=== PATIENT | female | born 1935 | race Caucasian/White ===

== ENCOUNTER 2022-03-14 14:47 | Observation (INO) ==
[2022-03-14 15:45] LABS: ABS Lymphocytes 0.6 10^3/ul (1.0-4.8); ABS Monocytes 0.5 10^3/ul (0-0.8); ABS Neutrophils 9.4 10^3/ul (1.5-7.7); Eosinophil % 0.3 %; Hematocrit 29 % (35-47); Hemoglobin 9.1 g/dL (12.0-16.0); Lymphocyte % 5.8 %; Mean Corpuscular HGB Conc 32 g/dL (31-36); Mean Corpuscular Hemoglobin 28 pg (27-31); Mean Corpuscular Volume 89 fL (80-97); Mean Platelet Volume 8.5 fL (7.4-10.4); Platelet Count 293 10^3/uL (150-450); Red Blood Count 3.25 10^6 /uL (3.70-4.87); Red Cell Distribution Width 16 % (10-15); White Blood Count 10.6 10^3/uL (3.5-10.8)
[2022-03-14 16:05] LABS: Albumin 3.2 g/dL (3.2-5.2); Albumin/Globulin Ratio 0.9 (1-3); C Reactive Protein 79.52 mg/L (<8.01); Globulin 3.4 g/dL (2-4); Potassium 4.4 mmol/L (3.5-5.0); Total Bilirubin 0.5 mg/dL (0.2-1.0); Total Protein 6.6 g/dL (6.4-8.9); eGFR CKD-EPI 12.9 (>60)
[2022-03-14 17:26] LABS: High Sensitivity Troponin 1 Hr 19 pg/mL (<15)
[2022-03-14] MEDS ORDERED: Furosemide 40 mg/4 ml IV VIAL IV ONE (19:31)
[2022-03-14 23:07] LABS: Urine Appearance Clear; Urine Bilirubin Negative (Negative); Urine Color Yellow; Urine Glucose Negative (Negative); Urine Ketones Negative (Negative); Urine Nitrite Negative (Negative); Urine Protein 2+ (100 mg/dL) (Negative); Urine Urobilinogen 0.2 (Negative) (Negative); Urine pH 6.5 (5.0-9.0)
[2022-03-14 23:16] LABS: Urine Bacteria Absent (Absent); Urine Red Blood Cell Trace(0-2/hpf) (Absent); Urine Squamous Epithelial Cell Present (Absent); Urine White Blood Cell Trace(0-5/hpf) (Absent)
[2022-03-15 05:53] LABS: ABS Basophils 0.1 10^3/ul (0-0.2); ABS Eosinophils 0.1 10^3/ul (0-0.6); ABS Monocytes 0.7 10^3/ul (0-0.8); ABS Neutrophils 6.8 10^3/ul (1.5-7.7); Eosinophil % 1.2 %; Hematocrit 26 % (35-47); Hemoglobin 8.4 g/dL (12.0-16.0); Lymphocyte % 11.7 %; Mean Corpuscular HGB Conc 32 g/dL (31-36); Mean Corpuscular Hemoglobin 28 pg (27-31); Mean Corpuscular Volume 88 fL (80-97); Mean Platelet Volume 8.6 fL (7.4-10.4); Platelet Count 251 10^3/uL (150-450); Red Blood Count 2.97 10^6 /uL (3.70-4.87); Red Cell Distribution Width 16 % (10-15); White Blood Count 8.8 10^3/uL (3.5-10.8)
[2022-03-15 06:37] LABS: Calcium 9.3 mg/dL (8.6-10.3); Potassium 4.3 mmol/L (3.5-5.0); eGFR CKD-EPI 12.5 (>60)
[2022-03-15 15:07] VITALS: BP 107/55
== END 2022-03-15 19:00 | disposition home or self-care (01) ==
LOC: ED 14:47 → EDHOLD 23:25 → INTOOBSV 23:25 → SUATTDRO 23:25 → EDHOLD 03-15 06:13
PROVIDERS: ADMIT Hospitalist; ATTEND Student in an Organized Health Care Education/Training Program